=== PATIENT | female | born 1995 | race Caucasian/White ===

== ENCOUNTER 2020-03-15 08:18 | Outpatient (CLI) | payer OTHER ==
[2020-03-15 12:12] LABS: BASOPHILS % (AUTO) 0.3 %; EOSINOPHILS # (AUTO) 0.1 10^3/uL (0.0-0.7); EOSINOPHILS % (AUTO) 0.9 %; LYMPHOCYTES # (AUTO) 2.1 10^3/uL (1.5-3.5); LYMPHOCYTES % (AUTO) 18.3 %; MEAN CORPUSCULAR HEMOGLOBIN 31.9 pg (27.0-31.0); MEAN CORPUSCULAR HGB CONC 34.1 g/dL (32.0-36.0); MEAN CORPUSCULAR VOLUME 93.6 fL (81.0-99.0); MEAN PLATELET VOLUME 10.7 fL (7.9-10.8); MONOCYTES # (AUTO) 0.9 10^3/uL (0.0-1.0); MONOCYTES % (AUTO) 7.8 %; NEUTROPHILS # (AUTO) 8.3 10^3/uL (1.5-6.6); NEUTROPHILS % (AUTO) 71.8 %; PLT - PLATELET COUNT 279 10^3/uL (130-450); RED BLOOD COUNT 4.07 10^6/uL (4.20-5.40); RED CELL DISTRIBUTION WIDTH 13.2 % (12.0-15.0); WHITE BLOOD COUNT 11.6 x10^3/uL (4.8-10.8)
== END 2020-03-15 23:59 | disposition home or self-care (01) ==
LOC: LAB.WCP 08:18
PROVIDERS: ATTEND Obstetrics & Gynecology
DX: Z36.89 Encounter for other specified antenatal screening (principal)
CPT/HCPCS: 36415; 82950; 85025

== ENCOUNTER 2020-05-08 07:00 | Outpatient (CLI) | payer OTHER | END 2020-05-08 23:59 | disposition home or self-care (01) | LOC: LAB.R 07:00 | PROVIDERS: ATTEND Obstetrics & Gynecology | DX: Z36.85 Encounter for antenatal screening for Streptococcus B (principal) | CPT/HCPCS: 87797 ==

== ENCOUNTER 2020-05-08 12:14 | Outpatient (CLI) | payer OTHER ==
[2020-05-08 12:42] LABS: BILIRUBIN,URINE NEGATIVE (NEGATIVE); GLUCOSE, URINE (UA) NEGATIVE (NEGATIVE); KETONES,URINE (UA) NEGATIVE (NEGATIVE); LEUKOCYTE ESTERASE, URINE NEGATIVE (NEGATIVE); NITRITE,URINE NEGATIVE (NEGATIVE); OCCULT BLOOD,URINE TRACE-INTA (NEGATIVE); PROTEIN,URINE NEGATIVE (NEGATIVE); UROBILINOGEN,URINE 0.2 (NORMAL) E.U./dL (NORMAL)
[2020-05-08 12:47] LABS: CLARITY,URINE HAZY (CLEAR)
[2020-05-08 12:50] LABS: CREATININE,URINE 102.4 mg/dL; PROTEIN/CREATININE RATIO,URINE 0.1 (<=0.2)
[2020-05-08 12:54] LABS: BASOPHILS % (AUTO) 0.2 %; EOSINOPHILS # (AUTO) 0.1 10^3/uL (0.0-0.7); EOSINOPHILS % (AUTO) 0.5 %; HCT - HEMATOCRIT 38.7 % (37.0-47.0); HGB - HEMOGLOBIN 13.1 g/dL (12.0-16.0); LYMPHOCYTES # (AUTO) 1.7 10^3/uL (1.5-3.5); LYMPHOCYTES % (AUTO) 16.9 %; MEAN CORPUSCULAR HEMOGLOBIN 30.3 pg (27.0-31.0); MEAN CORPUSCULAR HGB CONC 33.9 g/dL (32.0-36.0); MEAN CORPUSCULAR VOLUME 89.6 fL (81.0-99.0); MEAN PLATELET VOLUME 9.8 fL (7.9-10.8); MONOCYTES % (AUTO) 10.4 %; NEUTROPHILS # (AUTO) 7.2 10^3/uL (1.5-6.6); NEUTROPHILS % (AUTO) 71.6 %; PLT - PLATELET COUNT 255 10^3/uL (130-450); RED BLOOD COUNT 4.32 10^6/uL (4.20-5.40)
[2020-05-08 12:56] LABS: BACTERIA,URINE Rare /HPF (None Seen); RBC,URINE 0-5 /HPF (0-5); SQUAMOUS EPITHELIAL CELL,UR RARE Squamous (<= Few); WBC,URINE 0-3 /HPF (0-5)
[2020-05-08 12:57] LABS: AMORPHOUS SEDIMENT,UR Few /LPF
[2020-05-08 13:16] LABS: ALBUMIN 2.9 g/dL (3.2-5.5); ALBUMIN/GLOBULIN RATIO 0.7 (1.0-2.2); BILIRUBIN,TOTAL 0.3 mg/dL (0.2-1.0); CALCIUM 9.1 mg/dL (8.5-10.3); CREATININE 0.8 mg/dL (0.4-1.0); POTASSIUM 3.7 mmol/L (3.5-5.0); TOTAL PROTEIN 7.2 g/dL (6.7-8.2)
[2020-05-08 15:32] VITALS: BP 135/78
--- NOTE | 2020-05-08 16:15 | Ultrasound Report ---
PROCEDURE: OB F/U or Repeat INDICATIONS: gestational HTN OUTSIDE/PRIOR DATING DATA: Last menstrual period (LMP): 08/29/2019. LMP-based estimated date of delivery (CHICHO): 06/04/2020. First dating scan (date and location): 11/09/2019. Estimated date of delivery (CHICHO) from first dating scan: 06/01/2020. TECHNIQUE: Real-time scanning was performed of the fetus, with image documentation and biometric measurements. COMPARISON: Report from prior outside ultrasound 01/18/2020. FINDINGS: General: A single living intrauterine gestation is present. Presentation: Vertex Placenta: Placental position is posterior, without previa. Amniotic fluid index: 19.7 cm, 81st percentile for gestational age. Largest pocket 7.3 cm. heart rate: 144 beats per minute. Maternal cervical canal: Not well seen but appears closed. biometrics: Biparietal diameter: 9.2 cm, 37 weeks 2 days. Head circumference: 33 cm, 37 weeks 4 days. Abdominal circumference: 32.9 cm, 36 weeks 5 days. Femur length: 6.8 cm, 34 weeks 6 days. Estimated gestational age from initial scan: 36 weeks 1 day. Composite gestational age from present scan: 36 weeks 5 days. Estimated weight and percentile: 2942 g, 61st percentile. Measurement variability in biometric dating: +/- 10 days from 12-20 weeks gestation, +/- 2 weeks from 20-30 weeks gestation, +/- 3 weeks at 30 weeks gestation or more. IMPRESSION: 1. Single living intrauterine demonstrating appropriate interval growth with estimated feta l weight at the 61st percentile. 2. Amniotic fluid index within normal limits. Reviewed by: Jeff Bella MD on 05/08/2020 4:12 PM PST Approved by: Jeff Bella MD on 05/08/2020 4:12 PM PST Station ID: [id number]
--- NOTE | 2020-05-17 15:58 | PROCEDURE REPORT ---
- HPI Diagnosis/Indication for NST: Gestational Hypertension Current EDU 06/04/20 Gestation 36 Weeks and 1 Days 1 Para 0 Vital Signs Temperature 98.4 F 05/08/20 12:30 Heart Rate 106 H 05/08/20 12:30 Respiratory Rate 16 05/08/20 12:30 Blood Pressure 128/94 H 05/08/20 12:30 O2 Saturation 100 05/08/20 12:30 Temperature 98.4 F 05/08/20 12:30 Heart Rate 120 H 05/08/20 13:45 Respiratory Rate 16 05/08/20 12:45 Blood Pressure 135/78 H 05/08/20 15:00 O2 Saturation 100 05/08/20 12:30 - NST Procedure NST Procedure Start Date 05/08/20 Start Time 12:30 Stop Time 14:55 Vibroacoustic Stimulation Used No Patient States Movement Yes EFM 140 mod lily 15x15 accels no decels TOCO: irritable - Results and Plan Findings/Impression: Patient is a 24 yo at 36+1 wga seen in triage after having elevated blood pressures in clinic. She was without BRENNAN/vision change/RUQ pain. PIH labs were drawn and were wnl NST was Category I Plan for twice weekly NST and weekly LARRY until IOL at 37 wga DX: Gestational HTN
== END 2020-05-08 15:10 | disposition home or self-care (01) ==
LOC: WFO 12:14 → FBP 12:18 → WFO 15:10
PROVIDERS: ATTEND Obstetrics & Gynecology
DX: O13.3 Gestational [pregnancy-induced] hypertension without significant proteinuria, third trimester (principal); Z3A.36 36 weeks gestation of pregnancy; Z36.85 Encounter for antenatal screening for Streptococcus B
CPT/HCPCS: 59025; 80053; 81001; 81003; 82570; 84156; 85025; 87086; 87797; 99213

== ENCOUNTER 2020-05-11 13:43 | Outpatient (CLI) | payer OTHER ==
[2020-05-11 13:55] VITALS: BP 134/86
--- NOTE | 2020-05-17 14:13 | PROCEDURE REPORT ---
- HPI Diagnosis/Indication for NST: Gestational Hypertension Current EDU 06/16/20 Gestation 34 Weeks and 6 Days 1 Para 0 Vital Signs Temperature 36.9 C 05/11/20 13:53 Heart Rate 95 05/11/20 13:53 Respiratory Rate 05/11/20 13:53 Blood Pressure 134/86 H 05/11/20 13:53 O2 Saturation 99 05/11/20 13:53 Temperature 36.9 C 05/11/20 13:53 Heart Rate 95 05/11/20 13:53 Respiratory Rate 05/11/20 13:53 Blood Pressure 134/86 H 05/11/20 13:53 O2 Saturation 99 05/11/20 13:53 - NST Procedure NST Procedure Start Date 05/11/20 Start Time 13:51 Stop Time 14:36 Vibroacoustic Stimulation Used No Patient States Movement Yes - Results and Plan Findings/Impression: REACTIVE NST Plan: DOS 05/11/2020 CONTINUE ANTINATAL TESTING
== END 2020-05-11 14:30 | disposition home or self-care (01) ==
LOC: WFO 13:43 → FBP 13:47 → WFO 14:30
PROVIDERS: ATTEND Obstetrics & Gynecology
DX: O13.3 Gestational [pregnancy-induced] hypertension without significant proteinuria, third trimester (principal); Z3A.34 34 weeks gestation of pregnancy
CPT/HCPCS: 59025; 99212

== ENCOUNTER 2020-05-14 07:51 | Observation (INO) | payer OTHER ==
[~2020-05-14 07:51] MED LIST: miSOPROStoL 100 MCG TABLET BC ONE
[2020-05-14] MEDS: SODIUM CHLORIDE FLUSH 0.9% 10 ML SYRINGE IVP PRN (08:45)
[2020-05-14 09:34] LABS: BASOPHILS % (AUTO) 0.4 %; EOSINOPHILS % (AUTO) 0.4 %; LYMPHOCYTES % (AUTO) 21.8 %; MEAN CORPUSCULAR HEMOGLOBIN 29.7 pg (27.0-31.0); MEAN CORPUSCULAR HGB CONC 33.1 g/dL (32.0-36.0); MEAN CORPUSCULAR VOLUME 89.6 fL (81.0-99.0); MEAN PLATELET VOLUME 10.5 fL (7.9-10.8); MONOCYTES # (AUTO) 0.9 10^3/uL (0.0-1.0); MONOCYTES % (AUTO) 9.7 %; NEUTROPHILS % (AUTO) 67.1 %; PLT - PLATELET COUNT 240 10^3/uL (130-450); RED BLOOD COUNT 4.04 10^6/uL (4.20-5.40); RED CELL DISTRIBUTION WIDTH 13.2 % (12.0-15.0)
[2020-05-14 09:40] LABS: CREATININE,URINE 72.3 mg/dL; TOTAL PROTEIN,URINE TIMED < 6 mg/dL
[2020-05-14 09:47] LABS: ALBUMIN/GLOBULIN RATIO 0.8 (1.0-2.2); BILIRUBIN,TOTAL 0.4 mg/dL (0.2-1.0); CALCIUM 9.7 mg/dL (8.5-10.3); CREATININE 0.7 mg/dL (0.4-1.0); TOTAL PROTEIN 6.8 g/dL (6.7-8.2)
[2020-05-14] MEDS: miSOPROStoL 100 MCG TABLET BC SCH ×4 (10:37→23:05)
[2020-05-14] MEDS ORDERED: ONDANSETRON ODT 4 MG TABLET TL PRN (11:04)
[2020-05-14] MEDS ORDERED: LACTATED RINGERS 1,000 ML IV SCH (12:00)
--- NOTE | 2020-05-14 16:05 | PREOP HISTORY & PHYSICAL ---
DATE OF SERVICE: 05/14/2020 Physician: Efrain Garcia MD IDENTIFICATION: Patient is a 24-year-old primigravida, whose EDC is 04 June. This was determined with early visits. Her initial care started at [facility]. She transferred to us at 25 weeks. She has blood studies done, which show her to be A positive. She is rubella immune. She is negative for STI checks. Her 50 gram Glucola was 104. She is also positive Varicella titer. She had a GBS culture done, which was positive. HISTORY: Patient has been followed in our clinic since 25 weeks EGA. On 05/01/2020 at 35 weeks, her blood pressure was 142/86. She had repeat blood pressure done, she had another blood pressure done on Apr, which was 138/90. She was sent over for a nonstress test the same day, at which time her blood pressure in the Labor and Delivery was 144/87, 141/79, and then progressed to 135/78. She does have a history of headaches and has been having them since 35 weeks EGA. She had PIH labs done on the , which were all within normal limits. Her protein-creatinine ratio was 0.1. On admission, her labs today are all within normal limits. Her protein-creatinine ratio is less than 0.1, her LFTs are normal. Her platelets are 240. She is noted to be GBS positive at 36 weeks. PAST MEDICAL HISTORY: Positive for migraines. SURGICAL HISTORY: [place] teeth. ALLERGIES: NONE KNOWN. CURRENT MEDICATIONS 1. Famotidine. 2. B6. 3. Zofran. 4. As well as vitamins. HABITS: Patient denies use of alcohol, tobacco, street or addictive drugs. 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 PHYSICAL EXAM VITAL SIGNS: Blood pressure here on Labor and Delivery today is in the 105 over 70s. Temperature is 36.8, she denies any COVID symptoms. HEENT: Pupils are equal, round. Extraocular muscles are intact. Thyroid is not palpably enlarged. HEART: Regular rate and rhythm without murmurs. LUNGS: Lung carrasco are clear without rales or wheezes. ABDOMEN: Gravid. Uterus is soft, nontender. EXTREMITIES: She shows no calf tenderness or Homans signs. PELVIC: Her most recent pelvic examination in the clinic was noted to show her to be 1 cm, 20%. Ultrasound at bedside showed the to be vertex. IMPRESSION: A 24-year-old primigravida with gestational hypertension. Dr. Lubin has selected to induce her at this time because of concomitant head achs. Because of an unfavorable cervix, we will proceed on with misoprostol. We will convert as necessary to silva bulb and then eventually Pitocin. She may utilize an epidural p.r.n. We will initiate antibiotics when she becomes active. TD: 05/14/2020 10:41 j MTDD
[2020-05-14] MEDS ORDERED: diphenhydrAMINE 25 MG CAPSULE PO PRN (17:17)
[2020-05-15] MEDS: SODIUM CHLORIDE FLUSH 0.9% 10 ML SYRINGE IVP PRN (03:31)
--- NOTE | 2020-05-15 08:36 | Discharge Plan ---
Discharge Plan Problem Reviewed?: No Disposition: Home, Self Care Condition: Good Diet: Regular Activity Restrictions: No Restrictions Shower Restrictions: No Driving Restrictions: No Plan of Treatment: 1. Be seen in clinic weekly until delivery 2. Induction of labor at 39w on 05/28/19 at 5pm 3. Plan to check bloodwork and urine testing weekly until delivery 4. Check blood pressures at home daily or if you feel a headache or if you feel "off". If blood pressure is 160 for the top number or 100 for the bottom number then come to triage. When you check your blood pressure rest for a minute or two beforehand, don't talk or move during taking the blood pressure, and don't cross your arms or legs. 5. Come to triage if you have a severe or "different" headache than usual, spots or flashing lights in your vision, or upper abdominal pain different than your heartburn. Come to triage if you have a sudden change in the swelling in your hands, feet, or face. Your final diagnosis is gestational hypertension WITHOUT preeclampsia. Call day or night with any questions! No Smoking: If you smoke, Please STOP! Call for help. Follow-up with: Esperanza Lara MD [Provider Admit Priv/Credential] -
--- NOTE | 2020-05-16 12:07 | DISCHARGE SUMMARY ---
Physician: Esperanza Lara MD DATE OF ADMISSION: 05/14/2020 DATE OF DISCHARGE: 05/15/2020 ADMISSION DIAGNOSES 1. Intrauterine at 37 weeks 0 days. 2. Gestational hypertension. DISCHARGE DIAGNOSES 1. Intrauterine at 37 weeks 0 days. 2. Gestational hypertension. PROCEDURE: Attempted induction of labor. HOSPITAL COURSE: The patient arrived for induction due to gestational hypertension. She did have a headache while in the hospital, but her headaches have been chronic throughout her , and it felt like her usual headache, but more mild than usual. She did not have any visual changes, upper abdominal pain, or increase in edema. She was induced with misoprostol, multiple doses, and had some mild cramping intermittently, but never became active in her labor. Her cervical exam was unchanged at 1 cm. Her blood pressures were all normal except for one elevated one at admission. Her labs were normal, and her protein-creatinine ratio was negative. Because of her stability we discussed a 39-week induction as suggested by Up-To-Date. She was amenable to this and was discharged home. DISPOSITION: Home. CONDITION: Good. FOLLOWUP: In 1 week with [facility]. PRECAUTIONS: Severe preeclampsia precautions given, patient ordered to check her blood pressure daily and given severe preeclampsia parameters to come in for evaluation. Please note that following the patient's discharge consensus was reached among [facility] obstetric providers to follow ACOG recommendations rather than the Up-To-Date recommendations. The ACOG recommendations call for a 37- week induction of labor. The patient was phoned later on in the day, and this was discussed with her. She followed up the next day, 05/16/2020, for induction of labor. TD: 05/16/2020 10:43 FRANCIS
== END 2020-05-15 09:24 | disposition home or self-care (01) ==
LOC: WFO 07:51 → FBP 07:58 → WFO 08:26 → FBP 08:53
PROVIDERS: ADMIT Obstetrics & Gynecology; ATTEND Obstetrics & Gynecology
DX: O13.3 Gestational [pregnancy-induced] hypertension without significant proteinuria, third trimester (principal); Z3A.37 37 weeks gestation of pregnancy; R51.9 Headache, unspecified; O61.0 Failed medical induction of labor
CPT/HCPCS: 80053; 82570; 84156; 84550; 85025; 87635; A9270; G0378

== ENCOUNTER 2020-05-16 08:00 | Inpatient (IN) | payer OTHER ==
[2020-05-16] MEDS ORDERED: AMPICILLIN 2 GM in SODIUM CHLORIDE 0.9% MINIBAG 100 ML IV PRN (08:58)
[2020-05-16] MEDS ORDERED: TERBUTALINE 1 MG/ML VIAL SUBQ PRN (08:58)
[2020-05-16] MEDS ORDERED: ONDANSETRON 4 MG/2 ML VIAL IVP PRN (08:58)
[2020-05-16] MEDS ORDERED: METHYLERGONOVINE 0.2 MG/ML VIAL IM PRN ×2 (08:58)
[2020-05-16] MEDS ORDERED: OXYTOCIN 10 UNIT/ML VIAL IM PRN (08:58)
[2020-05-16] MEDS ORDERED: CARBOPROST TROMETHAMINE 250 MCG/ML AMP IM PRN ×2 (08:58)
[2020-05-16] MEDS ORDERED: miSOPROStoL 200 MCG TABLET BC PRN (08:58)
[2020-05-16] MEDS ORDERED: SODIUM CHLORIDE FLUSH 0.9% 10 ML SYRINGE IVP PRN (08:58)
[2020-05-16] MEDS ORDERED: OXYTOCIN/SODIUM CHLORIDE 500 ML IV PRN ×2 (08:58)
[2020-05-16] MEDS ORDERED: LACTATED RINGERS 1,000 ML IV PRN (08:58)
[2020-05-16] MEDS ORDERED: miSOPROStoL 200 MCG TABLET PR PRN (08:58)
[2020-05-16] MEDS ORDERED: fentaNYL 100 MCG/2 ML VIAL IVP PRN (08:58)
[2020-05-16] MEDS ORDERED: ACETAMINOPHEN 325 MG TABLET PO PRN (08:58)
[2020-05-16] MEDS ORDERED: LIDOCAINE-MPF 1% 30 ML VIAL ID PRN (08:58)
[2020-05-16] MEDS ORDERED: LABETALOL 20 MG/4 ML SYRINGE IV PRN (08:58)
[2020-05-16] MEDS ORDERED: TRANEXAMIC ACID 1,000 MG in SODIUM CHLORIDE 0.9% 100ML 100 ML IV PRN (08:58)
[2020-05-16 09:18] LABS: BASOPHILS % (AUTO) 0.3 %; EOSINOPHILS # (AUTO) 0.1 10^3/uL (0.0-0.7); EOSINOPHILS % (AUTO) 0.6 %; HGB - HEMOGLOBIN 12.7 g/dL (12.0-16.0); LYMPHOCYTES # (AUTO) 2.1 10^3/uL (1.5-3.5); LYMPHOCYTES % (AUTO) 20.4 %; MEAN CORPUSCULAR HEMOGLOBIN 30.1 pg (27.0-31.0); MEAN CORPUSCULAR VOLUME 88.6 fL (81.0-99.0); MEAN PLATELET VOLUME 11.1 fL (7.9-10.8); MONOCYTES # (AUTO) 1.1 10^3/uL (0.0-1.0); MONOCYTES % (AUTO) 11.2 %; NEUTROPHILS # (AUTO) 6.7 10^3/uL (1.5-6.6); NEUTROPHILS % (AUTO) 66.8 %; PLT - PLATELET COUNT 272 10^3/uL (130-450); RED BLOOD COUNT 4.22 10^6/uL (4.20-5.40); RED CELL DISTRIBUTION WIDTH 13.1 % (12.0-15.0); WHITE BLOOD COUNT 10.1 x10^3/uL (4.8-10.8)
[2020-05-16 09:28] LABS: ALBUMIN 2.8 g/dL (3.2-5.5); ALBUMIN/GLOBULIN RATIO 0.8 (1.0-2.2); BILIRUBIN,TOTAL 0.3 mg/dL (0.2-1.0); CALCIUM 8.9 mg/dL (8.5-10.3); CREATININE 0.9 mg/dL (0.4-1.0); TOTAL PROTEIN 6.5 g/dL (6.7-8.2)
[2020-05-16] MEDS: miSOPROStoL 100 MCG TABLET BC SCH ×2 (09:34→13:55)
[2020-05-16 09:46] LABS: CREATININE,URINE 179.8 mg/dL; PROTEIN/CREATININE RATIO,URINE 0.1 (<=0.2)
--- NOTE | 2020-05-16 10:37 | HISTORY & PHYSICAL EXAMINATION ---
Admit History - Smoking Status: Former smoker - Other Maternal History Other Maternal History: CC: induction of labor HPI: feeling OK, got sleep yesterday. Some orange and red discharge but no leaking of water. Had contractions mild for 1/2 hour yesterday but nothing recently. Good FM. No BRENNAN, visual changes, or upper abd pain. PMH: chronic BRENNAN PSH: wisdom teeth Allergies: NKDA Meds: PNV, vitamin B6, unasom, pepcid, tums SH: no t/e/d. Husb is deployed, pt here with supportive mother FH: no defects OB: G1 is current. CHICHO 06/04 by LMP c/w 10w US A pos/ Rub imm IS wnl CF carrier status neg FAS posterior, 3VC, 35%ile, nl FAS Flu imm given TDaP given Glucola 108 GBS positive HSV: denies MOD: Anticipate Breast pumo RX: given Contraception: Considerning mirena IUD. Pap: 11/09/19 wnl O: BP mild range. Otherwise AVSS Alert, smiling, NAD Abd soft, nt/nd EFW by rhina: 7# Vertex by rhina and SVE No LE edema 3+ DTR, 1 beat of clonus Category 1 NST 1-2 contractions q10min SVE /-2/med/post. Cook balloon placed with pt cramping but otherwise uncomplicated. Normal Hct, Plts, AST, ALT, Cr P:C ration pending A/P: 24yo G1 at 37w1d by LMP c/w 10w here for IOL due to gestational HTN. No s x, labs are normal, BP normal to mild range. P:C pending. Fetus: 7# EFW, Vertex, normal anatomy, category 1 NST IOL: had miso yesterday, will continue miso and added silva balloon GBS +: start ampicillin 4h prior to pit Meds/Allgy - Allergies Allergies/Adverse Reactions: Allergies Allergy/AdvReac Type Severity Reaction Status Date / Time No Known Drug Allergies Allergy Verified 05/14/20 10:03 Physical - Abdominal Exam Vital Signs: Temp Pulse Resp BP Pulse Ox 98.8 F 05/16/20 09:42
[2020-05-16] MEDS ORDERED: DOXYLAMINE 25 MG TABLET PO PRN (10:43)
[2020-05-16] MEDS ORDERED: CALCIUM CARBONATE CHEW 500 MG TABLET PO PRN (10:43)
[2020-05-16] MEDS ORDERED: DOCUSATE SODIUM 100 MG CAPSULE PO ONE (16:50)
[2020-05-16] MEDS ORDERED: SENNA SYRUP 8.8 MG/5 ML UDC PO PRN (16:51)
--- NOTE | 2020-05-16 16:53 | PROVIDER PROGRESS NOTE ---
Labor Progress Note - Labor Progress Note Labor Progress Note/Additional Text: Not feeling much cramping or contractions AVSS Last SVE unchanged Category 1 NST [place] 2-3 contractions q10min Discussed option of continuing misoprostol vs. starting pitocin. pt would like to start pit. Discussed process. Start GBS prophylaxis. C/o constipation--stool softener and senna ordered.
[2020-05-16] MEDS ORDERED: SENNA 8.6 MG TABLET PO PRN (16:58)
[2020-05-16] MEDS: SODIUM CHLORIDE FLUSH 0.9% 10 ML SYRINGE IVP SCH ×2 (18:17→18:41)
[2020-05-16] MEDS: AMPICILLIN 1 GM in SODIUM CHLORIDE 0.9% MINIBAG 100 ML IV SCH ×3 (18:42→22:39)
[2020-05-16] MEDS ORDERED: FAMOTIDINE 20 MG TABLET PO SCH (21:00)
--- NOTE | 2020-05-17 00:03 | ANESTHESIA ---
Pre-Anesthesia VS, & Labs - Diagnosis active labor - Procedure vaginal delivery Vital Signs: Temp Pulse Resp BP Pulse Ox 37.1 C 05/16/20 09:42 Height: 5 ft 4 in Weight (kg): 83.915 kg Body Mass Index: 31.7 BMI Classification: Obese - NPO Other - Is Patient ?: Yes - Lab Results Current Lab Results: Laboratory Tests 05/16/20 08:40: Blood Type A POSITIVE, Antibody Screen NEGATIVE 05/16/20 08:40: Sodium 136, Potassium 3.8, Chloride 105, Carbon Dioxide 20 L, Anion Gap 11.0, BUN 9, Creatinine 0.9, Estimated GFR (MDRD) 78 L, Glucose 93, Calcium 8.9, Total Bilirubin 0.3, AST 18, ALT 17, Alkaline Phosphatase 176 H, Total Protein 6.5 L, Albumin 2.8 L, Globulin 3.7, Albumin/Globulin Ratio 0.8 L 05/16/20 08:40: WBC 10.1, RBC 4.22, Hgb 12.7, Hct 37.4, MCV 88.6, MCH 30.1, MCHC 34.0, RDW 13.1, Plt Count 272, MPV 11.1 H, Neut # (Auto) 6.7 H, Lymph # (Auto) 2.1, [place] # (Auto) 1.1 H, Eos # (Auto) 0.1, Baso # (Auto) 0.0, Absolute Nucleated RBC 0.00, Nucleated RBC % 0.0 05/14/20 09:24: Blood Type Recheck A POSITIVE Fish Bones: 05/16/20 08:40 05/16/20 08:40 Home Medications and Allergies Active Medications Acetaminophen (Acetaminophen 325 Mg Tablet) 650 mg PO Q6H PRN PRN Reason: Pain or Fever Calcium Carbonate/Glycine (Calcium Carbonate Chew 500 Mg Tablet) 500 mg PO BID PRN PRN Reason: Abdominal Pain Carboprost Tromethamine (Carboprost Tromethamine 250 Mcg/Ml Amp) 250 mcg IM Q15M PRN PRN Reason: Step 4: Hemorrhage protocol Stop: 05/21/20 08:59 Carboprost Tromethamine (Carboprost Tromethamine 250 Mcg/Ml Amp) 250 mcg IM ONCE PRN PRN Reason: Post- Hemorrhage Stop: 05/17/20 08:57 Doxylamine Succinate (Doxylamine 25 Mg Tablet) 25 mg PO QPM PRN PRN Reason: Insomnia Last Admin: 05/16/20 20:36 Dose: 25 mg Documented by: Famotidine (Famotidine 20 Mg Tablet) 20 mg PO BID [facility] Last Admin: 05/16/20 20:36 Dose: 20 mg Documented by: Fentanyl (Fentanyl 100 Mcg/2 Ml Vial) 50 mcg IVP Q1H PRN PRN Reason: PAIN Last Admin: 05/16/20 23:53 Dose: 50 mcg Documented by: Oxytocin/Sodium Chloride (Pitocin/Sodium Chloride) 500 mls @ 999 mls/hr IV PRN PRN; Protocol PRN Reason: POST- HEMORR PREVENTION Stop: 05/21/20 08:59 Last Admin: 05/16/20 18:22 Dose: 1 milliunit/min, 1 mls/hr Documented by: Tranexamic Acid 1,000 mg/ (Sodium Chloride) 110 mls @ 660 mls/hr IV .ONCE PRN PRN Reason: EBL >1200mL and within 3hr Stop: 05/21/20 08:59 Oxytocin/Sodium Chloride (Pitocin/Sodium Chloride) 500 mls @ 1 mls/hr IV TITR PRN; Protocol PRN Reason: PER PHYSICIAN ORDER Ampicillin Sodium 1 gm/ Sodium (Chloride) 100 mls @ 200 mls/hr IV Q4H [facility] Last Admin: 05/16/20 22:39 Dose: 200 mls/hr Documented by: Lactated Ringer's (Lr) 1,000 mls @ 75 mls/hr IV .[id number] PRN PRN Reason: PER PHYSICIAN ORDER Last Admin: 05/16/20 18:17 Dose: 75 mls/hr Documented by: Labetalol HCl (Labetalol 20 Mg/4 Ml Syringe) 10 mg IV Q10M PRN PRN Reason: SBP > 160 or DBP > 110 Lidocaine HCl (Lidocaine-Mpf 1% 30 Ml Vial) 30 ml ID .ONCE PRN PRN Reason: PERINEAL REPAIR Stop: 05/21/20 08:59 Methylergonovine Maleate (Methylergonovine 0.2 Mg/Ml Vial) 0.2 mg IM .ONCE PRN PRN Reason: Step 2: Hemorrhage protocol Stop: 05/21/20 08:59 Methylergonovine Maleate (Methylergonovine 0.2 Mg/Ml Vial) 0.2 mg IM Q4HR PRN PRN Reason: Post- Hemorrhage Misoprostol (Misoprostol 200 Mcg Tablet) 800 mcg BC .ONCE PRN PRN Reason: Step 3: Hemorrhage protocol Stop: 05/21/20 08:59 Misoprostol (Misoprostol 200 Mcg Tablet) 800 mcg [place] ONCE PRN PRN Reason: Post- Hemorrhage Stop: 05/17/20 08:57 Ondansetron HCl (Ondansetron 4 Mg/2 Ml Vial) 4 mg IVP Q4HR PRN PRN Reason: Nausea / Vomiting Oxytocin (Oxytocin 10 Unit/Ml Vial) 10 unit IM .ONCE PRN PRN Reason: Step one: If no IV access Stop: 05/21/20 08:59 Senna (Senna 8.6 Mg Tablet) 8.6 mg PO BID PRN PRN Reason: Constipation Sodium Chloride (Sodium Chloride Flush 0.9% 10 Ml Syringe) 10 ml IVP 0100,0900,1700 ALFONSO Last Admin: 05/16/20 18:41 Dose: Not Given Documented by: Sodium Chloride (Sodium Chloride Flush 0.9% 10 Ml Syringe) 10 ml IVP PRN PRN PRN Reason: NEEDED PER PROVIDER ORDERS Last Admin: 05/16/20 08:40 Dose: 10 ml Documented by: Terbutaline Sulfate (Terbutaline 1 Mg/Ml Vial) 0.25 mg SUBQ Q1H PRN PRN Reason: PER PHYSICIAN ORDER famodipine, pnv, unisom Allergies/Adverse Reactions: Allergies Allergy/AdvReac Type Severity Reaction Status Date / Time No Known Drug Allergies Allergy Verified 05/14/20 10:03 Anes History & Medical History - Anesthetic History Family history of Anesthesia Complications: Denies Family history of Malignant Hyperthermia: Denies - Medical History Cardiovascular: reports: Hypertension (gestational) Pulmonary: reports: None Gastrointestinal: reports: None Urinary: reports: None Neuro: reports: None Musculoskeletal: reports: None Endocrine/Autoimmune: reports: None Blood Disorders: reports: None Skin: reports: None Smoking Status: Former smoker Psychosocial: reports: No issues indicated History of Cancer?: No - Obstetrical History : 1 Parity: 0 Events: positive: induced HTN Exam General: Alert, Oriented x3, Cooperative, No acute distress Dental: WNL Mouth Openin Fingerbreadth Neck Mobility: Normal Mallampati classification: III Thyromental Distance: 4-6 cm Plan Anesthesia Type: Epidural Consent for Procedure(s) Verified and Reviewed: Yes Code Status: Attempt Resuscitation ASA classification: 2-Mild systemic disease Is this case an emergency?: No
[2020-05-17] MEDS ORDERED: ROPIVACAINE 0.2% 200 MG/100 ML BAG EP ONE (00:10)
[2020-05-17] MEDS ORDERED: ROPIVACAINE 0.2% 200 MG/100 ML BAG EP PRN ×2 (00:37→06:18)
[2020-05-17] MEDS: AMPICILLIN 1 GM in SODIUM CHLORIDE 0.9% MINIBAG 100 ML IV SCH ×2 (03:05→07:10)
--- NOTE | 2020-05-17 03:16 | PROVIDER PROGRESS NOTE ---
Labor Progress Note - Labor Progress Note Labor Progress Note/Additional Text: Some residual pain after epidural but overall feeling better. BP mild to normal range, otherwise AVSS Alert, resting, NAD SVE 4-5/100/-1 IUPC placed after verbal consent without difficulty Category 1 NST [place] not picking up well A/P: 24yo G1 at 37w IOL for gestational HTN. Normal bloodwork and P:C 0.1. BPs stable normal to mild range. Labor progressing--SROM clear and some good SVE change. Not picking up UC well; pitocin at 10. IUPC placed to facilitate titration. GBS + has started ampicillin
[2020-05-17] MEDS ORDERED: fentaNYL 100 MCG/2 ML VIAL ONE (06:11)
[2020-05-17] MEDS ORDERED: SODIUM CHLORIDE 0.9% 10 ML ONE (06:11)
[2020-05-17] MEDS ORDERED: BUPIVACAINE 0.25% PF 10 ML VIAL ONE (06:11)
--- NOTE | 2020-05-17 06:17 | ANESTHESIA PROCEDURE NOTE ---
Anesthesia Epidural Template - Patient Report Patient Reports: positive: Inadequate control - Plan Plan: positive: Other (pt c/o pain with contractions and generalized pain when laying on left side. L1 level on both sides. Epidural bolused with 5ml of 0.25% bupivicaine with 100mcg fentanyl and 8ml of PF NS. Epidural pump changed to 10ml every 45 mins. After bolus, patient reports she is comfortable with contractions.)
[2020-05-17] MEDS ORDERED: HYDROCORTISONE 1% CREAM 28 GM TUBE PR PRN (09:46)
[2020-05-17] MEDS ORDERED: SIMETHICONE CHEW 80 MG TABLET PO PRN (09:46)
[2020-05-17] MEDS ORDERED: WITCH HAZEL/GLYCERIN 1 PAD TOP PRN (09:46)
[2020-05-17] MEDS ORDERED: ONDANSETRON ODT 4 MG TABLET TL PRN (09:46)
[2020-05-17] MEDS ORDERED: CALCIUM CARBONATE CHEW 500 MG TABLET PO PRN (09:49)
--- NOTE | 2020-05-17 12:11 | DELIVERY NOTE ---
Delivery Note - Labor Labor: positive: Induced by oxytocin - Delivery Method Delivery Method: positive: Spontaneous vaginal delivery - Cervical Ripening Method Cervical Ripening Method: positive: Balloon device, Misoprostil - Presentation Presentation: positive: Vertex - Nuchal Cord Nuchal Cord: positive: None - Amniotic Fluid Description Amniotic Fluid Description: positive: Clear - Episiotomy Type Episiotomy Type: positive: None - Laceration Laceration: positive: Vaginal - Suture Suture Type: positive: Vicryl Suture Size: positive: 2-0 - Delivery Outcome Delivery Outcome: positive: Livebirth - [place] : positive: Placed in direct skin contact with mother, Bulb syringe, Stimulated, Warmed, [place] used sex: positive: Male - Cord Cord: positive: 3 vessels - Placenta Placenta: positive: Intact, Spontaneous - Estimated Blood Loss Estimated Blood Loss (in cc): 225 - Post Delivery Events Post Delivery Events: positive: No post delivery events - Delivery Comments (Free Text/Narrative) Delivery Comments (Free Text/Narrative): Induced at 37w for gestational HTN. Didn't develop preeclampsia. Uncomplicated induction, pushed effectively, uncomplicated 3rd stage. Will watch BP and recheck labs in am.
[2020-05-17] MEDS: IBUPROFEN 600 MG TABLET PO SCH ×3 (13:28→20:50)
[2020-05-17] MEDS: ACETAMINOPHEN 325 MG TABLET PO PRN ×2 (13:28→20:50)
[2020-05-17] MEDS: FAMOTIDINE 20 MG TABLET PO SCH (20:50)
[2020-05-18] MEDS: ACETAMINOPHEN 325 MG TABLET PO PRN ×4 (01:34→23:24)
[2020-05-18] MEDS: IBUPROFEN 600 MG TABLET PO SCH ×4 (02:47→23:12)
[2020-05-18] MEDS: DOCUSATE SODIUM 100 MG CAPSULE PO SCH (09:27)
[2020-05-18] MEDS: FAMOTIDINE 20 MG TABLET PO SCH ×2 (09:30→20:55)
--- NOTE | 2020-05-18 09:57 | PROVIDER PROGRESS NOTE ---
Subjective - Subjective Subjective: S: feeling OK. Eat, ambulate, urinate, defecate OK. No heavy bleeding, BRENNAN, visual changes, or upper abd pain. Mood is OK. is challenging. Objective - Vital Signs/Intake & Output Reviewed Vital Signs: Yes Vital Signs: Vital Signs x48h Temp Pulse Resp BP Pulse Ox 05/18/20 08:22 97.7 F 65 16 123/82 H 100 05/18/20 04:40 97.7 F 64 18 133/76 H 98 05/18/20 02:00 98.2 F 60 18 142/89 H Intake & Output: Intake & Output 05/15/20 05/16/20 05/17/20 05/18/20 23:59 23:59 23:59 23:59 Intake Total 183 577 3040 Output Total 1500 Balance 100 -1200 1400 - Lab Results Fish Bones: 05/16/20 08:40 05/16/20 08:40 - Other Results/Comments Other Results/Comments: A/P: 24yo P1 PPD #1 s/p induced at term for gest HTN at 37w. Doing well, labs are pending, no sx, only one mild-range BP. support today and anticipate discharge home tomorrow.
[2020-05-18 10:25] LABS: BASOPHILS % (AUTO) 0.3 %; EOSINOPHILS # (AUTO) 0.2 10^3/uL (0.0-0.7); EOSINOPHILS % (AUTO) 1.6 %; HGB - HEMOGLOBIN 10.4 g/dL (12.0-16.0); LYMPHOCYTES % (AUTO) 17.5 %; MEAN CORPUSCULAR HEMOGLOBIN 30.1 pg (27.0-31.0); MEAN CORPUSCULAR HGB CONC 33.7 g/dL (32.0-36.0); MEAN CORPUSCULAR VOLUME 89.6 fL (81.0-99.0); MEAN PLATELET VOLUME 10.5 fL (7.9-10.8); MONOCYTES # (AUTO) 0.9 10^3/uL (0.0-1.0); MONOCYTES % (AUTO) 8.2 %; NEUTROPHILS # (AUTO) 8.2 10^3/uL (1.5-6.6); NEUTROPHILS % (AUTO) 71.8 %; PLT - PLATELET COUNT 221 10^3/uL (130-450); RED BLOOD COUNT 3.45 10^6/uL (4.20-5.40); RED CELL DISTRIBUTION WIDTH 13.4 % (12.0-15.0); WHITE BLOOD COUNT 11.4 x10^3/uL (4.8-10.8)
[2020-05-19] MEDS: ACETAMINOPHEN 325 MG TABLET PO PRN ×3 (03:29→14:45)
[2020-05-19] MEDS: DOCUSATE SODIUM 100 MG CAPSULE PO SCH (08:41)
[2020-05-19] MEDS: FAMOTIDINE 20 MG TABLET PO SCH (08:41)
[2020-05-19] MEDS: IBUPROFEN 600 MG TABLET PO SCH ×2 (08:41→14:46)
--- NOTE | 2020-05-19 09:02 | Discharge Plan ---
Discharge Plan Problem Reviewed?: Yes Disposition: Home, Self Care Condition: Good Diet: Regular Activity Restrictions: No Restrictions Shower Restrictions: No Driving Restrictions: No Additional Instructions or Follow Up instructions: Come back to triage if you have severe upper abdominal pain, severe headache, changes in your vision, or a big change in your leg swelling. No Smoking: If you smoke, Please STOP! Call for help. Follow-up with: Esperanza Lara MD [Provider Admit Priv/Credential] - (1w and 6w. F/u TOMORROW)
[2020-05-19 17:05] VITALS: BP 130/84
--- NOTE | 2020-05-19 17:55 | Labor Flowsheet ---
Labor Flowsheet Datetime Report Generated by CPN: 05/19/2020 17:55 Datetime: 05/19/2020 08:31 VITAL SIGNS NBP Sys/Soraida/Mean (mmHg): 130 : 84 : 92 Pulse: 61 Datetime: 05/18/2020 19:55 SpO2 (%): 100 Datetime: 05/17/2020 10:28 Medication Comments: LR complete. Datetime: 05/17/2020 09:30 Stage of : Recovery Datetime: 05/17/2020 09:20 UTERINE ACTIVITY Monitor Mode: Palpation Frequency (min): 1.5-3 Quality: Strong Duration (sec): 40-50 Pattern: Normal: <= 5 Contractions in 10 Minutes Resting Tone (Palpate): Relaxed ASSESSMENT A Monitor Mode: External US FHR Baseline Changes: No Baseline Change Variability: Moderate 6-25 bpm Accelerations: 15X15 Decelerations: Late; Variable Actions for Decelerations: Provider Notified Category: Category II Comments: pushing with contractions Datetime: 05/17/2020 09:01 LaborFlag: Labor Datetime: 05/17/2020 09:00 Resting Tone IUP (mmHg): 10-25 [place] Units (mmHg): 160 Datetime: 05/17/2020 08:47 Contraction Comments: pushing with contractions Datetime: 05/17/2020 08:43 MEDICATIONS Pitocin (milliunits): Decreased to @ 7 Datetime: 05/17/2020 08:38 COMMUNICATION Communication: Provider at Bedside Datetime: 05/17/2020 08:36 Patient Position/Activity: High Fowlers Datetime: 05/17/2020 08:32 Patient Care Comments: trial push Datetime: 05/17/2020 08:28 VAGINAL EXAM Dilatation (cm): 10.0 Effacement (%): 100 Station: 1 Exam by: c gambs Vaginal Bleeding: Normal Show Cervix, Consistency: Soft Cervix, Position: Anterior Datetime: 05/17/2020 08:02 Pain Coping: Sleeping Anesthesia Level Check: T10- Umbilicus Anesthesia Comments: sleeping Datetime: 05/17/2020 07:15 FHR Baseline Rate : 135 Datetime: 05/17/2020 07:10 Temperature (C): 36.5 Pain Presence: None/Denies Antibiotics: Ampicillin IV 1 Gm Datetime: 05/17/2020 06:45 [place] UNITS (Computed) Contractions in Ten Minutes: 4 IUPC Average Intensity: 35 IUPC Average Resting Tone: 20 [place] Units (mmHg): 60 Datetime: 05/17/2020 06:30 Respirations: 16 Datetime: 05/17/2020 06:27 Intensity IUP (mmHg): 35 Pitocin Checklist: Uterus Palpates Soft between Contractions Datetime: 05/17/2020 06:10 Notification Reason: Status Update; Status; Uterine Activity; Pain Datetime: 05/17/2020 06:00 PATIENT CARE Oxygen Method: Room Air Datetime: 05/17/2020 05:46 Temperature Route: Oral Datetime: 05/17/2020 05:30 PAIN Pain Scale: 6 Pain Type: Ache Pain Location: Back Pain Goal: 0 Datetime: 05/17/2020 03:20 Vaginal Exam Comments: IUPC placed Procedures: Sterile Vag Exam Datetime: 05/17/2020 03:15 Monitor Interventions for UA: IUPC Inserted Monitor Interventions for FHR: Ultrasound Adjusted Datetime: 05/17/2020 02:14 I/O Interventions: Loja Cath Inserted Datetime: 05/17/2020 01:08 ANESTHESIA Anesthesia Plans: Epidural Anesthesia Interview: E Datetime: 05/17/2020 00:20 Epidural Procedure: Completed Epidural Procedure Other: Pump Started Datetime: 05/17/2020 00:19 Provider Notified (Name): Dr Lara Datetime: 05/17/2020 00:10 PROCEDURE TIME OUT Procedure Verify: Correct Patient Identity; Correct Side and Site are Marked; Accurate Procedure Co nsent Form; Agreement on Procedure to be Done; Correct Patient Position Datetime: 05/17/2020 00:06 Epidural Positioning: Sitting Datetime: 05/16/2020 23:53 Pain Relief Measures: Pain Medication Given Datetime: 05/16/2020 23:07 Membrane Status: Ruptured Membranes Rupture Method: Spontaneous Amniotic Fluid Color: Clear Amniotic Fluid Amount: Large Amniotic Fluid Odor: Normal Datetime: 05/16/2020 20:06 MATERNAL ASSESSMENT Level of Consciousness: Alert Headache: Denies Breath Sounds, Left: Clear and Equal Breath Sounds, Right: Clear and Equal Nausea/Vomiting: Denies RUQ Epigastric Pain: Denies Datetime: 05/16/2020 18:19 Pain Assessment Comments: little menstrual cramps Datetime: 05/16/2020 13:52 Cervical Ripening Agents: Cytotec @ Communication Comments: OK with provider to increase miso to 50mcg BC Q4hrs.
--- NOTE | 2020-05-24 12:04 | DISCHARGE SUMMARY ---
Physician: Esperanza Lara MD DATE OF ADMISSION: 05/17/2020 DATE OF DISCHARGE: 05/19/2020 ADMISSION DIAGNOSES: 1. Intrauterine at 37 weeks 1 day. 2. Gestational hypertension. 3. Group B strep positive. DISCHARGE DIAGNOSES: Gestational hypertension and status post spontaneous vaginal delivery at term. PROCEDURE: On 05/17/2020, spontaneous vaginal delivery of a liveborn male, uncomplicated. Estimated blood loss was 225 mL. There was a vaginal laceration that was repaired. HOSPITAL COURSE: Patient was admitted and induced with misoprostol and a balloon device. She was th en placed on Pitocin. She never developed preeclampsia, and her delivery was uncomplicated. Her pos tpartum course was unremarkable. By day #2, she was requesting discharge home. She was e ating, ambulating, urinating, and defecating okay. She did not having have any heavy bleeding, heada ches, visual changes or upper abdominal pain. Her mood was okay, and was challenging, but she felt supported. PHYSICAL EXAMINATION: VITAL SIGNS: She is afebrile with normal vital signs. GENERAL: Alert and smiling, in no apparent distress. ABDOMEN: Soft, nontender, nondistended. Fundus firm, nontender, and at the umbilicus. EXTREMITIES: There is no clubbing, cyanosis or edema of the lower extremities. LABORATORY DATA: Her hematocrit was 30.9. She is blood type A positive, rubella immune, and had a normal Pap smear. DISCHARGE DISPOSITION: Home. PRECAUTIONS: Routine and preeclampsia precautions given. FOLLOWUP: At 1 week at [facility] CONDITION: Good. MEDICATIONS: Ibuprofen and Colace p.r.n. TD: 05/24/2020 11:56
== END 2020-05-19 15:45 | disposition home or self-care (01) | DRG 807 ==
LOC: WFO 08:00 → FBP 08:04 → WFO 08:57 → FBP 08:58 → OBSVTOIN 05-17 14:06
PROVIDERS: ADMIT Obstetrics & Gynecology; ATTEND Obstetrics & Gynecology
PROC: 10E0XZZ Delivery of Products of Conception, External Approach (ICD-10-PCS; principal; 2020-05-17)
PROC: 0HQ9XZZ Repair Perineum Skin, External Approach (ICD-10-PCS; 2020-05-17)
DX: O13.4 Gestational [pregnancy-induced] hypertension without significant proteinuria, complicating childbirth (principal); Z37.0 Single live birth; O70.0 First degree perineal laceration during delivery; O99.824 Streptococcus B carrier state complicating childbirth; Z3A.37 37 weeks gestation of pregnancy; Z87.891 Personal history of nicotine dependence
CPT/HCPCS: 51703; 59200; 80053; 82570; 84156; 85025; 86850; 86900; 86901; 96365; 96375; A9270; J7120; 59409; 96366

== ENCOUNTER 2020-05-20 15:37 | Outpatient (CLI) | payer OTHER ==
--- NOTE | 2020-05-20 17:42 | Labor Flowsheet ---
Labor Flowsheet Datetime Report Generated by CPN: 05/20/2020 17:41 Datetime: 05/19/2020 08:31 VITAL SIGNS NBP Sys/[place]ora[place]/Mean (mmHg): 130 : 84 : 92 Pulse: 61 Datetime: 05/18/2020 19:55 SpO2 (%): 100 Datetime: 05/17/2020 10:28 Medication Comments: LR complete. Datetime: 05/17/2020 09:30 Stage of : Recovery Datetime: 05/17/2020 09:20 UTERINE ACTIVITY Monitor Mode: Palpation Frequency (min): 1.5-3 Quality: Strong Duration (sec): 40-50 Pattern: Normal: <= 5 Contractions in 10 Minutes Resting Tone (Palpate): Relaxed ASSESSMENT A Monitor Mode: External US FHR Baseline Changes: No Baseline Change Variability: Moderate 6-25 bpm Accelerations: 15X15 Decelerations: Late; Variable Actions for Decelerations: Provider Notified Category: Category II Comments: pushing with contractions Datetime: 05/17/2020 09:01 LaborFlag: Labor Datetime: 05/17/2020 09:00 Resting Tone IUP (mmHg): 10-25 [place] Units (mmHg): 160 Datetime: 05/17/2020 08:47 Contraction Comments: pushing with contractions Datetime: 05/17/2020 08:43 MEDICATIONS Pitocin (milliunits): Decreased to @ 7 Datetime: 05/17/2020 08:38 COMMUNICATION Communication: Provider at Bedside Datetime: 05/17/2020 08:36 Patient Position/Activity: High Fowlers Datetime: 05/17/2020 08:32 Patient Care Comments: trial push Datetime: 05/17/2020 08:28 VAGINAL EXAM Dilatation (cm): 10.0 Effacement (%): 100 Station: 1 Exam by: c gambs Vaginal Bleeding: Normal Show Cervix, Consistency: Soft Cervix, Position: Anterior Datetime: 05/17/2020 08:02 Pain Coping: Sleeping Anesthesia Level Check: T10- Umbilicus Anesthesia Comments: sleeping Datetime: 05/17/2020 07:15 FHR Baseline Rate : 135 Datetime: 05/17/2020 07:10 Temperature (C): 36.5 Pain Presence: None/Denies Antibiotics: Ampicillin IV 1 Gm Datetime: 05/17/2020 06:45 [place] UNITS (Computed) Contractions in Ten Minutes: 4 IUPC Average Intensity: 35 IUPC Average Resting Tone: 20 [place] Units (mmHg): 60 Datetime: 05/17/2020 06:30 Respirations: 16 Datetime: 05/17/2020 06:27 Intensity IUP (mmHg): 35 Pitocin Checklist: Uterus Palpates Soft between Contractions Datetime: 05/17/2020 06:10 Notification Reason: Status Update; Status; Uterine Activity; Pain Datetime: 05/17/2020 06:00 PATIENT CARE Oxygen Method: Room Air Datetime: 05/17/2020 05:46 Temperature Route: Oral Datetime: 05/17/2020 05:30 PAIN Pain Scale: 6 Pain Type: Ache Pain Location: Back Pain Goal: 0 Datetime: 05/17/2020 03:20 Vaginal Exam Comments: IUPC placed Procedures: Sterile Vag Exam Datetime: 05/17/2020 03:15 Monitor Interventions for UA: IUPC Inserted Monitor Interventions for FHR: Ultrasound Adjusted Datetime: 05/17/2020 02:14 I/O Interventions: Loja Cath Inserted Datetime: 05/17/2020 01:08 ANESTHESIA Anesthesia Plans: Epidural Anesthesia Interview: E Datetime: 05/17/2020 00:20 Epidural Procedure: Completed Epidural Procedure Other: Pump Started Datetime: 05/17/2020 00:19 Provider Notified (Name): Dr Lara Datetime: 05/17/2020 00:10 PROCEDURE TIME OUT Procedure Verify: Correct Patient Identity; Correct Side and Site are Marked; Accurate Procedure Co nsent Form; Agreement on Procedure to be Done; Correct Patient Position Datetime: 05/17/2020 00:06 Epidural Positioning: Sitting Datetime: 05/16/2020 23:53 Pain Relief Measures: Pain Medication Given Datetime: 05/16/2020 23:07 Membrane Status: Ruptured Membranes Rupture Method: Spontaneous Amniotic Fluid Color: Clear Amniotic Fluid Amount: Large Amniotic Fluid Odor: Normal Datetime: 05/16/2020 20:06 MATERNAL ASSESSMENT Level of Consciousness: Alert Headache: Denies Breath Sounds, Left: Clear and Equal Breath Sounds, Right: Clear and Equal Nausea/Vomiting: Denies RUQ Epigastric Pain: Denies Datetime: 05/16/2020 18:19 Pain Assessment Comments: little menstrual cramps Datetime: 05/16/2020 13:52 Cervical Ripening Agents: Cytotec @ Communication Comments: OK with provider to increase miso to 50mcg BC Q4hrs.
== END 2020-05-20 17:15 | disposition home or self-care (01) ==
LOC: WFO 15:37 → FBP 15:46 → WFO 17:15
PROVIDERS: ATTEND Obstetrics & Gynecology
DX: O92.70 Unspecified disorders of lactation (principal)
CPT/HCPCS: 99403

== ENCOUNTER 2020-05-24 12:23 | Outpatient (CLI) | payer OTHER ==
--- NOTE | 2020-05-24 13:04 | Labor Flowsheet ---
Labor Flowsheet Datetime Report Generated by CPN: 05/24/2020 13:04 Datetime: 05/19/2020 08:31 VITAL SIGNS NBP Sys/Soraida/Mean (mmHg): 130 : 84 : 92 Pulse: 61 Datetime: 05/18/2020 19:55 SpO2 (%): 100 Datetime: 05/17/2020 10:28 Medication Comments: LR complete. Datetime: 05/17/2020 09:30 Stage of : Recovery Datetime: 05/17/2020 09:20 UTERINE ACTIVITY Monitor Mode: Palpation Frequency (min): 1.5-3 Quality: Strong Duration (sec): 40-50 Pattern: Normal: <= 5 Contractions in 10 Minutes Resting Tone (Palpate): Relaxed ASSESSMENT A Monitor Mode: External US FHR Baseline Changes: No Baseline Change Variability: Moderate 6-25 bpm Accelerations: 15X15 Decelerations: Late; Variable Actions for Decelerations: Provider Notified Category: Category II Comments: pushing with contractions Datetime: 05/17/2020 09:01 LaborFlag: Labor Datetime: 05/17/2020 09:00 Resting Tone IUP (mmHg): 10-25 [place] Units (mmHg): 160 Datetime: 05/17/2020 08:47 Contraction Comments: pushing with contractions Datetime: 05/17/2020 08:43 MEDICATIONS Pitocin (milliunits): Decreased to @ 7 Datetime: 05/17/2020 08:38 COMMUNICATION Communication: Provider at Bedside Datetime: 05/17/2020 08:36 Patient Position/Activity: High Fowlers Datetime: 05/17/2020 08:32 Patient Care Comments: trial push Datetime: 05/17/2020 08:28 VAGINAL EXAM Dilatation (cm): 10.0 Effacement (%): 100 Station: 1 Exam by: c gambs Vaginal Bleeding: Normal Show Cervix, Consistency: Soft Cervix, Position: Anterior Datetime: 05/17/2020 08:02 Pain Coping: Sleeping Anesthesia Level Check: T10- Umbilicus Anesthesia Comments: sleeping Datetime: 05/17/2020 07:15 FHR Baseline Rate : 135 Datetime: 05/17/2020 07:10 Temperature (C): 36.5 Pain Presence: None/Denies Antibiotics: Ampicillin IV 1 Gm Datetime: 05/17/2020 06:45 [place] UNITS (Computed) Contractions in Ten Minutes: 4 IUPC Average Intensity: 35 IUPC Average Resting Tone: 20 [place] Units (mmHg): 60 Datetime: 05/17/2020 06:30 Respirations: 16 Datetime: 05/17/2020 06:27 Intensity IUP (mmHg): 35 Pitocin Checklist: Uterus Palpates Soft between Contractions Datetime: 05/17/2020 06:10 Notification Reason: Status Update; Status; Uterine Activity; Pain Datetime: 05/17/2020 06:00 PATIENT CARE Oxygen Method: Room Air Datetime: 05/17/2020 05:46 Temperature Route: Oral Datetime: 05/17/2020 05:30 PAIN Pain Scale: 6 Pain Type: Ache Pain Location: Back Pain Goal: 0 Datetime: 05/17/2020 03:20 Vaginal Exam Comments: IUPC placed Procedures: Sterile Vag Exam Datetime: 05/17/2020 03:15 Monitor Interventions for UA: IUPC Inserted Monitor Interventions for FHR: Ultrasound Adjusted Datetime: 05/17/2020 02:14 I/O Interventions: Loja Cath Inserted Datetime: 05/17/2020 01:08 ANESTHESIA Anesthesia Plans: Epidural Anesthesia Interview: E Datetime: 05/17/2020 00:20 Epidural Procedure: Completed Epidural Procedure Other: Pump Started Datetime: 05/17/2020 00:19 Provider Notified (Name): Dr Lara Datetime: 05/17/2020 00:10 PROCEDURE TIME OUT Procedure Verify: Correct Patient Identity; Correct Side and Site are Marked; Accurate Procedure Co nsent Form; Agreement on Procedure to be Done; Correct Patient Position Datetime: 05/17/2020 00:06 Epidural Positioning: Sitting Datetime: 05/16/2020 23:53 Pain Relief Measures: Pain Medication Given Datetime: 05/16/2020 23:07 Membrane Status: Ruptured Membranes Rupture Method: Spontaneous Amniotic Fluid Color: Clear Amniotic Fluid Amount: Large Amniotic Fluid Odor: Normal Datetime: 05/16/2020 20:06 MATERNAL ASSESSMENT Level of Consciousness: Alert Headache: Denies Breath Sounds, Left: Clear and Equal Breath Sounds, Right: Clear and Equal Nausea/Vomiting: Denies RUQ Epigastric Pain: Denies Datetime: 05/16/2020 18:19 Pain Assessment Comments: little menstrual cramps Datetime: 05/16/2020 13:52 Cervical Ripening Agents: Cytotec @ Communication Comments: OK with provider to increase miso to 50mcg BC Q4hrs.
== END 2020-05-24 13:00 | disposition home or self-care (01) ==
LOC: WFO 12:23 → OBS 12:25 → WFO 13:00
PROVIDERS: ATTEND Obstetrics & Gynecology
DX: O92.79 Other disorders of lactation (principal)
CPT/HCPCS: 99404